=== PATIENT | male | born 1995 | race American Indian/Alaskan Native ===

== ENCOUNTER 2019-04-26 11:21 | Emergency (ER) | payer SELFPAY ==
[2019-04-26 11:47] VITALS: BP 126/82
--- NOTE | 2019-04-26 11:50 | Emergency Department Report ---
Chief Complaint: Urogenital-Male Stated Complaint: STD CHECK Time Seen by Provider: 04/26/19 11:45 - HPI History of Present Illness: pt presents for routine STD testing no penile discharge no lesions or blisters no pain or swelling in testicles no fever PMHx schizophrenia no HI, SI, hallucinations pt is asymptomatic presenting for routine STD screening pt given referrals to the health department and primary care clinics given list of community resources vitals are normal advised pt to please be seen by the health department or a primary care clinic for full STD testing. return to the emergency room for any new or worsening symptoms MSE complete MSE screening note: Focused history performed ED Disposition for MSE Clinical Impression: Concern about STD in male without diagnosis Disposition: Z- MED SCREENING EXAM-CONT Is pt being admited?: No Does the pt Need Aspirin: No Condition: Stable Instructions: Sexually Transmitted Diseases (ED), Safe Sex (ED) Additional Instructions: please be seen by the health department or a primary care clinic for full STD testing. return to the emergency room for any new or worsening symptoms Referrals: [facility] [Outside] - 3-5 Days [facility] [Outside] - 3-5 Days [facility] [Outside] - 3-5 Days [facility] [Provider Group] - 3-5 Days Time of Disposition: 11:49 Print Language: MALAY
== END 2019-04-26 12:20 | disposition home or self-care (01) ==
LOC: ED 11:21
DX: R36.9 Urethral discharge, unspecified (principal); Z53.21 Procedure and treatment not carried out due to patient leaving prior to being seen by health care provider

== ENCOUNTER 2020-08-13 18:57 | Emergency (ER) | payer MEDICAID ==
[2020-08-13 20:25] VITALS: BP 115/58
[2020-08-13 20:42] LABS: Basophils % (Auto) 0.8 % (0.0-1.8); Eosinophils # (Auto) 0.3 K/mm3 (0.0-0.4); Eosinophils % (Auto) 6.2 % (0.0-4.3); Hematocrit 41.5 % (35.5-45.6); Hemoglobin 13.9 gm/dl (11.8-15.2); Lymphocytes # (Auto) 1.8 K/mm3 (1.2-5.4); Lymphocytes % (Auto) 33.5 % (13.4-35.0); Mean Corpuscular HGB Conc 34 % (32-34); Mean Corpuscular Volume 93 fl (84-94); Monocytes # (Auto) 0.4 K/mm3 (0.0-0.8); Monocytes % (Auto) 7.7 % (0.0-7.3); Platelet Count 265 K/mm3 (140-440); Red Blood Count 4.45 M/mm3 (3.65-5.03); Red Cell Distribution Width 14.1 % (13.2-15.2)
[2020-08-13 21:02] LABS: Alanine Aminotransferase 24 units/L (7-56); Albumin 4.4 g/dL (3.9-5); BUN/Creatinine Ratio 16; Blood Urea Nitrogen 14 mg/dL (9-20); Calcium 9.5 mg/dL (8.4-10.2); Hemolysis Index 18
--- NOTE | 2020-08-13 21:33 | Emergency Department Report ---
ED Abdominal Pain HPI - General Chief Complaint: Abdominal Pain Stated Complaint: ABDOMINAL JPAN/LIGHT HEADED/DIZZY Time Seen by Provider: 08/13/20 21:27 Source: patient Mode of arrival: Ambulatory Limitations: No Limitations - History of Present Illness Initial Comments: This is a 25-year-old healthy young male presents to ED with umbilical abdominal pain that started this morning. Patient denies fever/chills/nausea vomiting/chest pain/shortness of breath. Patient states abdominal pain is localized to the umbilical area with no radiation elsewhere. Patient admits 1-2 episodes of diarrhea nonbloody no other symptoms. MD Complaint: abdominal pain Location: periumbilical Radiation: none Migration to: no migration Severity: moderate Severity scale (0 -10): 6 Quality: sharp Consistency: intermittent Improves With: nothing Worsens With: nothing Associated Symptoms: diarrhea. denies: nausea, vomiting, dysuria - Related Data Allergies Allergy/AdvReac Type Severity Reaction Status Date / Time No Known Allergies Allergy Verified 04/26/19 11:28 ED Review of Systems ROS: Stated complaint: ABDOMINAL JPAN/LIGHT HEADED/DIZZY Other details as noted in HPI Comment: All other systems reviewed and negative ED Past Medical Hx - Past Medical History Previous Medical History?: Yes Hx Psychiatric Treatment: Yes (schizophrenia) - Surgical History Past Surgical History?: No - Social History Smoking Status: Current Every Day Smoker Substance Use Type: Alcohol ED Physical Exam - General Limitations: No Limitations General appearance: alert, in no apparent distress - Head Head exam: Present: atraumatic, normocephalic - Eye Eye exam: Present: normal appearance - ENT ENT exam: Present: mucous membranes moist - Neck Neck exam: Present: normal inspection - Respiratory Respiratory exam: Present: normal lung sounds bilaterally. Absent: respiratory distress - Cardiovascular Cardiovascular Exam: Present: regular rate, normal rhythm. Absent: systolic murmur, diastolic murmur, rubs, gallop - GI/Abdominal GI/Abdominal exam: Present: soft, normal bowel sounds. Absent: distended, tenderness, guarding, mass, bruit, pulsatile mass - Rectal Rectal exam: Present: deferred - Extremities Exam Extremities exam: Present: normal inspection - Back Exam Back exam: Present: normal inspection - Neurological Exam Neurological exam: Present: alert, oriented X3 - Psychiatric Psychiatric exam: Present: normal affect, normal mood - Skin Skin exam: Present: warm, dry, intact, normal color. Absent: rash ED Course Vital Signs 08/13/20 08/13/20 20:16 22:45 Temperature 98.4 F Pulse Rate 81 88 Respiratory 18 16 Rate Blood Pressure 115/58 O2 Sat by Pulse 100 98 Oximetry ED Medical Decision Making - Lab Data Result diagrams: 08/13/20 20:30 08/13/20 20:30 Temp Pulse Resp BP Pulse Ox 98.4 F 88 16 115/58 98 08/13/20 20:16 08/13/20 22:45 08/13/20 22:45 08/13/20 20:16 08/13/20 22:45 Laboratory Last Values WBC 5.3 K/mm3 (4.5-11.0) 08/13/20 20:30 RBC 4.45 M/mm3 (3.65-5.03) 08/13/20 20:30 Hgb 13.9 gm/dl (11.8-15.2) 08/13/20 20:30 Hct 41.5 % (35.5-45.6) 08/13/20 20:30 MCV 93 fl (84-94) 08/13/20 20:30 MCH 31 pg (28-32) 08/13/20 20:30 MCHC 34 % (32-34) 08/13/20 20:30 RDW 14.1 % (13.2-15.2) 08/13/20 20:30 Plt Count 265 K/mm3 (140-440) 08/13/20 20:30 Lymph % (Auto) 33.5 % (13.4-35.0) 08/13/20 20:30 Robeson % (Auto) 7.7 % (0.0-7.3) H 08/13/20 20:30 Eos % (Auto) 6.2 % (0.0-4.3) H 08/13/20 20:30 Baso % (Auto) 0.8 % (0.0-1.8) 08/13/20 20:30 Lymph # (Auto) 1.8 K/mm3 (1.2-5.4) 08/13/20 20:30 Robeson # (Auto) 0.4 K/mm3 (0.0-0.8) 08/13/20 20:30 Eos # (Auto) 0.3 K/mm3 (0.0-0.4) 08/13/20 20:30 Baso # (Auto) 0.0 K/mm3 (0.0-0.1) 08/13/20 20: Seg Neutrophils % 51.8 % (40.0-70.0) 08/13/20 20: Seg Neutrophils # 2.7 K/mm3 (1.8-7.7) 08/13/20 20:30 Sodium 139 mmol/L (137-145) 08/13/20 20: Potassium 4.1 mmol/L (3.6-5.0) 08/13/20 20: Chloride 103.2 mmol/L (98-107) 08/13/20 20: Carbon Dioxide 28 mmol/L (22-30) 08/13/20 20:30 Anion Gap 12 mmol/L 08/13/20 20:30 BUN 14 mg/dL (9-20) 08/13/20 20: Creatinine 0.9 mg/dL (0.8-1.3) 08/13/20 20:30 Estimated GFR > 60 ml/min 08/13/20 20:30 BUN/Creatinine Ratio 16 % 08/13/20 20: Glucose 90 mg/dL (75-100) 08/13/20 20: Calcium 9.5 mg/dL (8.4-10.2) 08/13/20 20:30 Total Bilirubin 0.20 mg/dL (0.1-1.2) 08/13/20 20: AST 29 units/L (5-40) 08/13/20 20: ALT 24 units/L (7-56) 08/13/20 20: Alkaline Phosphatase 47 units/L (35-129) 08/13/20 20: Total Protein 7.4 g/dL (6.3-8.2) 08/13/20 20: Albumin 4.4 g/dL (3.9-5) 08/13/20 20: Albumin/Globulin Ratio 1.5 % 08/13/20 20:30 - Medical Decision Making Healthy 25-year-old male presents with gastroenteritis. All labs within normal limits urinalysis normal. Patient is in no acute distress throughout ED stay. Patient was no respiratory distress. I discussed with patient brat diet. Discussed with patient to follow-up with primary care physician. I instructed patient to return to the ED if any new or worsening symptoms resolved. Critical care attestation.: If time is entered above; I have spent that time in minutes in the direct care of this critically ill patient, excluding procedure time. ED Disposition Clinical Impression: Gastroenteritis Disposition: DC-01 TO HOME OR SELFCARE Is pt being admited?: No Does the pt Need Aspirin: No Condition: Stable Instructions: Viral Gastroenteritis, Adult, [id number], [place] Diet Additional Instructions: Make sure to follow up with the primary care physician as discussed. If you have any worsening symptoms or develop new symptoms please return to ED immediately. Referrals: PRIMARY CARE, [Primary Care Provider] - 3-5 Days Forms: Work/School Release Form(ED) Time of Disposition: 22:03
== END 2020-08-13 22:50 | disposition home or self-care (01) ==
LOC: ED 18:57
DX: K52.9 Noninfective gastroenteritis and colitis, unspecified (principal); F20.9 Schizophrenia, unspecified; F17.200 Nicotine dependence, unspecified, uncomplicated
CPT/HCPCS: 36415; 80053; 85025